=== PATIENT | female | born 1950 | race Caucasian/White ===

== ENCOUNTER 2022-02-26 16:41 | Observation (INO) | payer MEDICARE, OTHER ==
[~2022-02-26] VITALS: Ht 172.7 cm; Wt 85.5 kg
[2022-02-26 17:00] VITALS: BP 154/76; PULSE 73; TEMP 98.1
[2022-02-26] MEDS ORDERED: LUMIGAN 5 ML5 M1 OP (17:58)
[2022-02-26] MEDS ORDERED: COSOPT 2%-0.5%10 ML OP (17:59)
[2022-02-26 20:10] VITALS: BP 146/70; PULSE 64; TEMP 97.9
--- NOTE | 2022-02-26 23:22 | NUR ---
Pt alert and oriented. Calm and follows commands. Pt denies pain. Denies numbness/tingling/loss of sensation. No dift noted in the extremities. Hand computer security coordinator are strong and equal. Pt has steady gait. No weakness noted in the extremities. No facial drooping noted. Shift assessment noted. Medications administered per orders and education provided. VS stable. On room air, satting WNL. Heart rate running in the upper 50's, sinus rythym. BP stable. Afebrile. Pt tolerating PO, no difficulties swallowing. Speech clear. Pt is hard of hearing. Independent in the room. Continuing to assess neuro checks and NIHSS checks every 2 hours. Pt resting and does not report any questions at this time, will continue to monitor.
[2022-02-27] VITALS (7 sets, daily range): BP systolic 105–152; BP diastolic 65–81; PULSE 53–71; TEMP 97.3–98.1
--- NOTE | 2022-02-27 05:25 | NUR ---
No changes overnight. Pt's NIHSS score continues to be 0. No defificts noted. Pt is alert and oriented. Denies pain/weakness/numbness/tingling. No drifts or drooping noted. Pt tolerating PO. Speech is clear, not slurred. Pt swallowing with no difficulty. VS stable. Pt resting and does not report any questions at this time, will continue to monitor.
[2022-02-27 06:19] LABS: BASO % 0.6 % (0.0-2.0); EOS # 0.3 K/mm3 (0.0-0.7); EOS % 4.6 % (0.0-4.0); GRAN # 2.5 K/mm3 (1.4-6.5); GRAN % 45.3 % (42.2-75.2); HEMATOCRIT 40.9 % (37.0-47.0); HEMOGLOBIN 13.6 g/dl (12.5-16.0); LYMPH % 36.2 % (20.0-51.0); MEAN CELL VOLUME 95 fl (80.0-100.0); MEAN CORPUSCULAR HEMOGLOBIN 31 pg (27-31); MEAN CORPUSCULAR HGB CONC 33 g/dl (33.0-37.0); MEAN PLATELET VOLUME 9.6 fl (7.4-10.4); MONO # 0.7 K/mm3 (0.1-0.6); MONO % 12.9 % (1.7-9.3); PLATELET COUNT 243 K/mm3 (130-400); RED BLOOD COUNT 4.33 M/mm3 (4.10-5.30); REDCELL DISTRIBUTION WIDTH-CV 13.4 % (11.5-14.5)
--- NOTE | 2022-02-27 06:21 | NUR ---
Attempted to call neurology consult to Dr. Kapoor x2. It went straight to voicemail both times. Dr. Kapoor's note on the on-call page states to not leave a voicemail. Will notify oncoming nurse of the consult and have dayshift attempted consult as well. Will continue to monitor pt.
[2022-02-27 06:37] LABS: CALCIUM 8.8 mg/dL (8.4-10.2); CHOLESTEROL RISK RATIO 3.7; CREATININE, serum 0.72 mg/dL (0.57-1.11); POTASSIUM 4.1 mmol/L (3.5-4.5)
--- NOTE | 2022-02-27 08:00 | NUR ---
PT OFF FLOOR TO MRI
--- NOTE | 2022-02-27 08:49 | NUR ---
PT RETURNED TO FLOOR FROM MRI
--- NOTE | 2022-02-27 08:50 | NUR ---
PT UP TO BATHROOM INDEPENDENTLY THEN RETURNED TO BED. PT ON ROOM AIR. PT A&OX4. PT SHOWS NO NEURO DEFICITS AT THIS TIME. PT STATES THAT SHE IS NOT HAVING ANY PAIN. "I FEEL GREAT, I AM READY TO HOME." PT STATES NO NEEDS/CONCERNS AT THIS TIME. CALL LIGHT IS WITHIN REACH.
--- NOTE | 2022-02-27 09:08 | NUR ---
Initial visit attempt; Patient out for MRI spoke with her daughter who thanked Varnishing Unit Operator for looking in on her mother and being available with [facility] for their family. She will let her mother know of Varnishing Unit Operator's visit.
--- NOTE | 2022-02-27 10:51 | NUR ---
Glass Tube Bender met with patient to discuss discharge planning. Patient's daughter, Tala (ph#[phone]) is at bedside. Patient goes to [facility] for primary care and medications. Patient does not use any DME and is independent with [facility]LS. Patient reports her daughter, Tala is her DPOA-HC. Patient plans to return home at time of discharge. Discharge Plan: Home
[2022-02-27] MEDS ORDERED: ASPIRIN 81M81 MG/TA2 PO (13:44)
[2022-02-27] MEDS ORDERED: LIPITOR 40MG TA40 MG PO (13:44)
--- NOTE | 2022-02-27 18:42 | NUR ---
PT SITTING UP IN BED ON ROOM AIR. PT STATES NO PAIN AT THIS TIME. AT BEDSIDE. CALL LIGHT IS WITHIN REACH.
--- NOTE | 2022-02-27 20:10 | NUR ---
Initial shift assessment done- denies pain, denies SOB, denies any blurred vision or weakness, no slurred speech- Dr. Kapoor did see pt around 1929 ton, will start on plavix tonight- he has cleared patient, and stated to nurse she can go home tomorrow ,hoping final echo report is completed. Pt agreeable to this- no requests, VSS.
[2022-02-28 04:10] VITALS: BP 126/77; PULSE 60; TEMP 97.5
--- NOTE | 2022-02-28 05:35 | NUR ---
Quiet night- no requests, has been sleeping well- no neuro deficits, going home today
[2022-02-28 08:11] VITALS: BP 122/76; PULSE 60; TEMP 97.9
--- NOTE | 2022-02-28 08:40 | NUR ---
PT SITTING UP IN BED ON ROOM AIR. PT A&O X4. PT SHOWING NO NEUROLOGICAL DEFICITS AT THIS TIME. PT STATES "I AM READY TO GO HOME TODAY, I FEEL WONDERFUL." PT STATES NO NEEDS/COCNERNS AT THIS TIME. FAMILY AT BEDSIDE. CALL LIGHT IS WITHIN REACH.
[2022-02-28] MEDS ORDERED: PLAVIX 75MG TAB75 MG PO (08:57)
== END 2022-02-28 10:55 | disposition home or self-care (01) ==
LOC: MEDICAL 16:41
PROVIDERS: ADMIT Student in an Organized Health Care Education/Training Program
DX: R41.82 Altered mental status, unspecified (principal)
CPT/HCPCS: 99232-AI; 99239; G0378; J1650